=== PATIENT | female | born 1985 | race Caucasian/White ===

== ENCOUNTER → 2022-09-19 | Outpatient (CLI) | payer SELFPAY ==
[2022-09-19 19:57] LABS: ALT 31 U/L (8-44); AST 27 U/L (13-35); African American GFR (CKD) 115.9 (60.0-200.0); Albumin 4.7 g/dL (3.8-4.9); Albumin/Globulin Ratio 1.84 (1.60-3.17); Alkaline Phosphatase 72 U/L (41-126); BUN/Creat Ratio 18.45 Ratio (12.00-20.00); Blood Urea Nitrogen 14.3 mg/dL (9.0-27.0); Calcium 9.7 mg/dL (8.7-10.3); Carbon Dioxide 24.3 mmol/L (20.0-27.5); Chloride 101 mmol/L (96-109); Chol/HDL Ratio 3.76 Ratio; Globulin 2.6 g/dL (1.6-3.3); Glucose 89 mg/dL (70-110); LDL Cholesterol,Calculated 122.5 mg/dL (0.0-131.0); Potassium 4.3 mmol/L (3.5-5.5); Sodium 137 mmol/L (135-145); Total Protein 7.2 g/dL (6.2-8.2); VLDL Calculation 19.24 mg/dL (5.00-40.00)
[2022-09-19 20:18] LABS: HCT 43.4 % (37.2-46.3); HGB 13.9 g/dL (12.0-15.0); MCH 31.3 pg (27.0-32.0); MCV 97.7 fL (80.0-97.0); Mean Platelet Volume 9.7 fL (9.5-12.2); NRBC Per 100 WBC 0 /100 WBCS (0.0-0.0); Platelet Count 302 X 10*3/uL (140-440); RBC 4.44 X 10*6/uL (4.10-5.20); RDW 12.8 % (11.5-14.5); WBC 6.04 X 10*3/uL (4.50-10.00)
== END | disposition home or self-care (01) ==
LOC: LABWHC1 11:36
PROVIDERS: ATTEND Obstetrics & Gynecology
DX: N91.5 Oligomenorrhea, unspecified (principal)
CPT/HCPCS: 36415; 80053; 80061; 82397; 83036; 84439; 84443; 85027

== ENCOUNTER 2023-10-07 10:57 | Emergency (ER) | payer BC, OTHER ==
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
[2023-10-07 13:24] VITALS: BP 126/76; PULSE 76; RESP 18; TEMP 98.1
== END 2023-10-07 13:19 | disposition home or self-care (01) ==
LOC: EC 10:57
DX: S05.11XA Contusion of eyeball and orbital tissues, right eye, initial encounter (principal); F17.200 Nicotine dependence, unspecified, uncomplicated; Z88.1 Allergy status to other antibiotic agents; Y04.0XXA Assault by unarmed brawl or fight, initial encounter
CPT/HCPCS: 70486; 99284